=== PATIENT | female | born 1970 | race Caucasian/White ===

== ENCOUNTER 2019-05-13 21:05 | Observation (INO) ==
[2019-05-13] MEDS ORDERED: Aspirin 81 MG TAB.CHEW PO ONE (21:15)
[2019-05-13] MEDS: Nitroglycerin 0.4 MG TAB.SUBL SL PRN ×2 (21:26→21:34)
[2019-05-13 21:55] LABS: Basophils # 0.1 K/mcL (0.0-0.2); Basophils % 0.9 %; Eosinophils # 0.1 K/mcL (0.0-0.6); Eosinophils % 1.5 %; Hematocrit 39.6 % (35.3-44.9); Hemoglobin 13.5 g/dL (11.5-15.4); Immature Granulocytes % 0.3 % (0-4); Lymphocytes % 44.5 %; Mean Corpuscular HGB Conc 34.1 g/dL (31.6-35.5); Mean Corpuscular Hemoglobin 30.6 pg (28.0-33.3); Mean Corpuscular Volume 89.8 fL (83.0-100.0); Mean Platelet Volume 10.6 fL (9.4-12.4); Monocytes # 0.7 K/mcL (0.0-1.3); Monocytes % 10.7 %; Neutrophils # 2.9 K/mcL (1.6-8.9); Platelet Count 287 K/mcL (140-400); Red Blood Count 4.41 M/mcL (3.82-4.97); Red Cell Distribution Width 13.2 % (11.5-14.5); Segmented Neutrophils % 42.1 %; White Blood Count 6.8 K/mcL (4.3-11.1)
[2019-05-13 22:03] LABS: Prothrombin Time 11.7 Seconds (9.4-12.1)
[2019-05-13 22:06] LABS: Activated Partial Thrombo Time 32.5 Seconds (26.0-36.0)
[2019-05-13 22:22] LABS: BUN/Creatinine Ratio 16 (6-26); Blood Urea Nitrogen 13 mg/dL (6-20); Carbon Dioxide 28 mEq/L (23-29); Chloride 104 mEq/L (98-107); Glucose 112 mg/dL (70-105); Osmolality,Calculated 289 (280-300); Potassium 3.7 mEq/L (3.5-5.1); Sodium 139 mEq/L (136-145); Troponin I < 0.03 ng/mL (< 0.04); eGFR For African Americans > 60 (> 60); eGFR For Non-African Americans > 60 (> 60)
[2019-05-14] MEDS ORDERED: Naloxone 0.4 MG/ML INJ IVP PRN (02:54)
[2019-05-14] MEDS: Morphine Sulfate 2 MG/ML SYRINGE IVP PRN ×2 (04:19→11:24)
[2019-05-14] MEDS: Pantoprazole 40 MG VIAL IVP SCH ×2 (04:19→15:50)
[2019-05-14] MEDS: Nicotine 21 MG PATCH.TD24 TD SCH ×2 (05:51→15:50)
[2019-05-14 07:09] LABS: Hematocrit 39.5 % (35.3-44.9); Hemoglobin 13.2 g/dL (11.5-15.4); Mean Corpuscular HGB Conc 33.4 g/dL (31.6-35.5); Mean Corpuscular Hemoglobin 31.2 pg (28.0-33.3); Mean Corpuscular Volume 93.4 fL (83.0-100.0); Mean Platelet Volume 11.4 fL (9.4-12.4); Platelet Count 260 K/mcL (140-400); Red Blood Count 4.23 M/mcL (3.82-4.97); Red Cell Distribution Width 13.2 % (11.5-14.5); White Blood Count 6.9 K/mcL (4.3-11.1)
[2019-05-14] MEDS ORDERED: 0.9 % Sodium Chloride 1,000 ML IVC ONE (07:24)
[2019-05-14] MEDS ORDERED: Dextrose Gel 15 GM/37.5 ML TUBE PO PRN ×2 (07:29)
[2019-05-14] MEDS ORDERED: D5% in Water 1,000 ML IVC PRN (07:29)
[2019-05-14] MEDS ORDERED: *HR* Dextrose 50 % in Water (Syg) 50 ML SYRINGE IVP PRN (07:29)
[2019-05-14 07:44] LABS: BUN/Creatinine Ratio 17 (6-26); Blood Urea Nitrogen 12 mg/dL (6-20); Calcium 8.7 mg/dL (8.6-10.3); Carbon Dioxide 24 mEq/L (23-29); Chloride 104 mEq/L (98-107); Glucose 101 mg/dL (70-105); Osmolality,Calculated 288 (280-300); Potassium 3.4 mEq/L (3.5-5.1); Sodium 139 mEq/L (136-145); Troponin I < 0.03 ng/mL (< 0.04); eGFR For African Americans > 60 (> 60); eGFR For Non-African Americans > 60 (> 60)
[2019-05-14] MEDS ORDERED: Regadenoson 0.4 MG/5 ML SYRINGE IVP ONE (07:57)
[2019-05-14 11:17] VITALS: BP 108/63
[2019-05-14] MEDS ORDERED: Insulin LISPRO 300 UNITS/3 ML VIAL SQ SCH ×2 (12:00→16:30)
[2019-05-14] MEDS ORDERED: *HR* Heparin 5,000 UNIT/ML VIAL SQ SCH (18:00)
== END 2019-05-14 16:13 | disposition home or self-care (01) ==
LOC: EMEROOARM 21:05 → CDU 21:05 → SUATTDRO 23:46 → CDU 05-14 01:21
PROVIDERS: ADMIT Family Medicine; ATTEND Internal Medicine